=== PATIENT | female | born 1990 | race Two or more races ===

== ENCOUNTER 2022-11-10 03:47 | Emergency (ER) | payer BC ==
[~2022-11-10] VITALS: Ht 162.6 cm; Wt 72.6 kg
[2022-11-10] MEDS ORDERED: KETO10TA2 PO (04:25)
[2022-11-10] MEDS ORDERED: AMOX-CLAV 875-1 EACH PO (04:25)
== END 2022-11-10 04:55 | disposition home or self-care (01) ==
LOC: ER 03:47
DX: H66.92 Otitis media, unspecified, left ear (principal)